=== PATIENT | male | born 1995 ===

== ENCOUNTER 2022-10-19 07:14 | Emergency (ER) | payer OTHER ==
[~2022-10-19] VITALS: Ht 160 cm; Wt 59.0 kg
[2022-10-19 08:12] VITALS: BP 123/72
== END 2022-10-19 09:55 | disposition home or self-care (01) ==
LOC: ER 07:14
DX: S81.811A Laceration without foreign body, right lower leg, initial encounter (principal); Z23 Encounter for immunization; V28.49XA Other motorcycle driver injured in noncollision transport accident in traffic accident, initial encounter
CPT/HCPCS: 12001; 73590; 90714; 90715; 99283-25; A9270